=== PATIENT | female | born 1950 | race Two or more races ===

== ENCOUNTER 2019-03-05 16:37 | Emergency (ER) | payer MEDICARE, MEDICAID ==
[~2019-03-05] VITALS: Ht 152.4 cm; Wt 102.1 kg
[2019-03-05] MEDS ORDERED: ACETAMINOPHEN/CODEINE 300-30 MG TABLET PO ONE (17:30)
[2019-03-05] MEDS ORDERED: ACETAMINOPHEN/CODEINE 300-30 MG TABLET ONE (17:40)
[2019-03-05 19:05] VITALS: BP 114/59
--- NOTE | 2019-03-05 19:07 | NUR ---
Patient discharged to home in stable conditon. Written and verbal after care instructions given. Patient verbalizes understanding of instructions.
== END 2019-03-05 19:07 | disposition home or self-care (01) ==
LOC: ER 16:39
DX: M79.671 Pain in right foot (principal); E11.9 Type 2 diabetes mellitus without complications
CPT/HCPCS: 73630; A4663

== ENCOUNTER 2021-07-24 22:07 | Emergency (ER) | payer MEDICARE, OTHER ==
[~2021-07-24] VITALS: Ht 152.4 cm; Wt 90.7 kg
--- NOTE | 2021-07-24 23:26 | NUR ---
MD Gamez in room to do MSE.
[2021-07-24] MEDS ORDERED: NITROGLYCERIN OINT 1 GM PACKET TP ONE ×2 (23:45→23:58)
[2021-07-24] MEDS ORDERED: ASPIRIN 325 MG TABLET PO ONE (23:45)
[2021-07-24] MEDS ORDERED: FUROSEMIDE 40 MG/4 ML VIAL IV ONE (23:45)
[2021-07-24 23:56] LABS: HEMATOCRIT 34.9 % (31.2-41.9); MEAN CORPUSCULAR HEMOGLOBIN 30.4 uug (24.7-32.8); MEAN CORPUSCULAR VOLUME 94.1 fL (75.5-95.3); PLATELET COUNT (AUTO) 120 K/uL (179-408)
[2021-07-24] MEDS ORDERED: ASPIRIN 325 MG TABLET ONE (23:58)
[2021-07-24] MEDS ORDERED: FUROSEMIDE 40 MG/4 ML VIAL ONE (23:58)
[2021-07-25 00:01] LABS: CARBON DIOXIDE 26 mmol/L (21-32); CHLORIDE 105 mmol/L (98-107); CREATININE 2.2 mg/dL (0.6-1.3); GLUCOSE 187 mg/dL (74-106); POTASSIUM 4.7 mmol/L (3.5-5.1); UREA NITROGEN, BLOOD 60 mg/dL (7-18)
[2021-07-25 00:13] LABS: ALANINE AMINOTRANSFERASE 69 U/L (14-59); ALKALINE PHOSPHATASE 121 U/L (50-136); ASPARTATE AMINOTRANSFERASE 53 U/L (15-37); BILIRUBIN,DIRECT 0.2 mg/dL (0.0-0.2); BILIRUBIN,TOTAL 0.4 mg/dL (0.2-1.0); TOTAL PROTEIN, SERUM 7.5 g/dL (6.4-8.2)
--- NOTE | 2021-07-25 00:45 | NUR ---
Called [facility] to page Dr. Rob Vela.
[2021-07-25 01:05] VITALS: BP 163/85
--- NOTE | 2021-07-25 01:18 | NUR ---
Patient discharged to home in stable condition. Written and verbal after care instructions given. Patient verbalizes understanding of instructions. Stressed follow up or return to ER for worsening s/s. Patient wheelchaired to daughter car, V/S stable, left with all personal belongings.
== END 2021-07-25 01:20 | disposition home or self-care (01) ==
LOC: ER 22:07
DX: I13.0 Hypertensive heart and chronic kidney disease with heart failure and stage 1 through stage 4 chronic kidney disease, or unspecified chronic kidney disease (principal); I50.9 Heart failure, unspecified; J44.9 Chronic obstructive pulmonary disease, unspecified; E11.22 Type 2 diabetes mellitus with diabetic chronic kidney disease; N18.9 Chronic kidney disease, unspecified; Z87.891 Personal history of nicotine dependence; I44.0 Atrioventricular block, first degree; M81.0 Age-related osteoporosis without current pathological fracture; M19.90 Unspecified osteoarthritis, unspecified site; Z98.49 Cataract extraction status, unspecified eye; E78.5 Hyperlipidemia, unspecified; L98.9 Disorder of the skin and subcutaneous tissue, unspecified
CPT/HCPCS: 36415; 71045; 80048; 80076; 83880; 84484; 85025; 85379; 93005; 96374; 99285; J1940; 70030-TC